=== PATIENT | female | born 1970 | race Caucasian/White ===

== ENCOUNTER 2018-08-25 17:39 | Emergency (ER) | payer OTHER ==
[2018-08-25 18:02] VITALS: TEMP 98.2; BMI 26.2
--- NOTE | 2018-08-25 19:03 | PDOC ---
History of Present Illness - General Chief Complaint: Pain, Acute Stated Complaint: ABD PAIN Time Seen by Provider: 08/25/18 19:02 History Source: Patient Exam Limitations: No Limitations - History of Present Illness Initial Comments: 08/25/18 19:35 48 year old female with PMH chronic constipation, rectal hemorrhoids, right lower lung lobe benign mass, sectionx3 presented to ED for lower abdominal pain since last night, worsening today, associated with constipation, diarrhea, and blood on toilet paper. Pt described pain to be located to the suprapubic area, radiating laterally to her RLQ and LLQ, constant, waxing and waning, aggravated by food, alleviated by lying flat. Pt denied fever, nausea, vomiting, chest pain, shortness of breath. Allergies: NKDA Past History - Past Medical History Allergies/Adverse Reactions: Allergies Allergy/AdvReac Type Severity Reaction Status Date / Time No Known Drug Allergies Allergy Verified 08/25/18 17:55 Home Medications: Ambulatory Orders Diphenhydramine HCl [Benadryl Capsule -] 1 cap PO DAILY 06/18/14 Zolpidem Tartrate [Ambien] 10 mg PO DAILY 06/18/14 Topiramate 25 mg PO DAILY 04/22/15 Cephalexin Monohydrate [Keflex -] 500 mg PO BID #13 capsule 08/25/18 Anemia: No Asthma: No Cancer: No (BENIGN LUNG MASS) Cardiac Disorders: No CVA: No COPD: No CHF: No Dementia: No Diabetes: No GI Disorders: No Disorders: (OVARIAN CYST;LEIOMYOMA OF UTERUS;CYSTIC KIDNEY DISEASE) HTN: No Hypercholesterolemia: No Liver Disease: No Seizures: No Thyroid Disease: No - Surgical History Abdominal Surgery: No Appendectomy: No Cardiac Surgery: No Cholecystectomy: No Lung Surgery: Yes (BENIGN LUNG MASS REMOVED) Neurologic Surgery: No Orthopedic Surgery: Yes (MARQUET PROCEDURE) - Immunization History Immunization Up to Date: Yes - Suicide/Smoking/Psychosocial Hx Smoking Status: Yes Smoking History: Never smoked Have you smoked in the past 12 months: Yes Number of Cigarettes Smoked Daily: 0 If you are a former smoker, when did you quit?: 04/2014 'Breaking Loose' booklet given: 06/09/12 Hx Alcohol Use: No Drug/Substance Use Hx: No Substance Use Type: Marijuana Hx Substance Use Treatment: No Review of Systems - Review of Systems Able to Perform ROS?: Yes Comments:: 08/25/18 19:48 General: admitted to chills. denied fever, generalized weakness. HEENT: denied sore throat, rhinorrhea, ear pain. Heart: denied chest pain, palpitations, syncope, lower extremity swelling, diaphoresis. Respiratory: denied shortness of breath, cough, sputum production, hemoptysis. Abdomen: admitted to abdominal pain, constipation, diarrhea, blood on toilet paper. denied nausea, vomiting. : denied dysuria, increased urinary frequency, hematuria, urinary incontinence , flank pain. Back: denied back pain. Musculoskeletal: denied joint pain, muscle pain, joint swelling. Neurological: denied headache, dizziness, numbness, tingling, weakness. Skin: denied rash, laceration, abrasion. *Physical Exam - Vital Signs Last Vital Signs Temp Pulse Resp BP Pulse Ox 98.2 F 82 16 133/88 98 08/25/18 17:56 08/25/18 17:56 08/25/18 17:56 08/25/18 17:56 08/25/18 17:56 - Physical Exam Comments: 08/25/18 19:49 Constitutional: Well-nourished, Well-developed, appearing stated age. appears in pain. HEENT: head is normocephalic, atraumatic. EOMI. PERRLA. Neck: supple. Full ROM. Heart: regular rhythm. no murmurs, rubs or gallops. Lungs: clear to auscultation bilaterally. no crackles, rhonchi or wheezing. no stridor. Abdomen: soft, flat, tenderness to palpation of suprapubic and LLQ. mcbur[place] point nontender. murphys sign negative. normal bowel sounds. no rebound, guarding, masses. Rectal: external oozing hemorrhoids. pain with digital examination. soft stool in rectal vault. no gross blood on stool sample. Extremities: Peripheral pulses intact. No lower extremity edema. Neurological: CN 2-12 grossly intact. Moves all four extremities. Psych: awake, alert, oriented x3. Follows commands. Answers questions appropriately. Moderate Sedation - Procedure Monitoring Vital Signs: Procedure Monitoring Vital Signs Temperature 98.2 F 08/25/18 17:56 Pulse Rate 82 08/25/18 17:56 Respiratory Rate 16 08/25/18 17:56 Blood Pressure 133/88 08/25/18 17:56 O2 Sat by Pulse Oximetry (%) 98 08/25/18 17:56 ED Treatment Course - LABORATORY CBC & Chemistry Diagram: 08/25/18 19:35 08/25/18 19:35 Medical Decision Making - Medical Decision Making 08/25/18 19:52 48 year old female with above PMH presented to ED for suprapubic pain associated with constipation and episodes of diarrhea, as well as toilet paper on stool. Tenderness to LLQ and suprapubic area. Initial Vital Signs Temp Pulse Resp BP Pulse Ox 98.2 F 82 16 133/88 98 08/25/18 17:56 08/25/18 17:56 08/25/18 17:56 08/25/18 17:56 08/25/18 17:56 Afebrile. No tachycardia. No tachypnea. Mild hypertenion. No hypoxia on room air. Labs ordered: CBC, CMP, lipase, stool guiaic, coags, UA/UC Medications ordered: tylenol, 1000 cc normal saline bolus, mag citrate Imaging ordered: Flat and upright abdomen XR 08/25/18 20:06 Pt reported after rectal examination she had a bowel movement, diarrhea, but no blood in toilet bowel. She reported symptoms have improved. CBC WBC 13.0 K/mm3 (4.0-10.0) H 08/25/18 19:35 RBC 4.42 M/mm3 (3.60-5.2) 08/25/18 19:35 Hgb 14.6 GM/dL (10.7-15.3) 08/25/18 19:35 Hct 42.2 % (32.4-45.2) D 08/25/18 19:35 MCV 95.3 fl (80-96) 08/25/18 19:35 MCH 33.1 pg (25.7-33.7) 08/25/18 19:35 MCHC 34.7 g/dl (32.0-36.0) 08/25/18 19:35 RDW 12.7 % (11.6-15.6) 08/25/18 19:35 Plt Count 314 K/MM3 (134-434) D 08/25/18 19:35 MPV 8.3 fl (7.5-11.1) 08/25/18 19:35 Absolute Neuts (auto) 9.3 K/mm3 (1.5-8.0) H 08/25/18 19:35 Neutrophils % 71.3 % (42.8-82.8) 08/25/18 19:35 Lymphocytes % 19.6 % (8-40) D 08/25/18 19:35 Monocytes % 5.5 % (3.8-10.2) 08/25/18 19:35 Eosinophils % 3.0 % (0-4.5) D 08/25/18 19:35 Basophils % 0.6 % (0-2.0) 08/25/18 19:35 Nucleated RBC % 0 % (0-0) 08/25/18 19:35 Mild leukocytosis with left shift. 08/25/18 20:30 CMP Sodium 137 mmol/L (136-145) 08/25/18 19:35 Potassium 4.4 mmol/L (3.5-5.1) 08/25/18 19:35 Chloride 107 mmol/L (98-107) 08/25/18 19:35 Carbon Dioxide 24 mmol/L (21-32) 08/25/18 19:35 Anion Gap 7 MMOL/L (8-16) L 08/25/18 19:35 BUN 10 mg/dL (7-18) 08/25/18 19:35 Creatinine 0.7 mg/dL (0.55-1.3) 08/25/18 19:35 Creat Clearance w eGFR > 60 (>60) 08/25/18 19:35 Random Glucose 97 mg/dL (74-106) 08/25/18 19:35 Calcium 8.9 mg/dL (8.5-10.1) 08/25/18 19:35 Total Bilirubin 0.3 mg/dL (0.2-1) 08/25/18 19:35 AST 19 U/L (15-37) 08/25/18 19:35 ALT 27 U/L (13-61) 08/25/18 19:35 Alkaline Phosphatase 107 U/L (45-117) 08/25/18 19:35 Total Protein 7.4 g/dl (6.4-8.2) 08/25/18 19:35 Albumin 4.0 g/dl (3.4-5.0) 08/25/18 19:35 Lipase 111 U/L (73-393) 08/25/18 19:35 No electrolyte abnormalities. No HILL. No transaminitis. Normal lipase. Stool negative for blood. Blood on toilet paper likely from hemorrhoids and increased straining secondary to constipation. 08/25/18 20:50 Air fluid levels noted on upright abdominal XR. Sharp costophrenic angles. no free air. no cardiomegaly. no infiltrate. Pt reassessed, reported continued passing of gas. XR concerning for ileus vs SBO. Imaging ordered: CT abdomen/pelvis 08/25/18 20:52 INR, PTT INR 0.93 (0.83-1.09) 08/25/18 19:35 Coags normal. Bleeding likely not from coagulopathy. Urine Test Results Urine Color Yellow 08/25/18 19:35 Urine Appearance Cloudy 08/25/18 19:35 Urine pH 5.0 (5.0-8.0) 08/25/18 19:35 Ur Specific [place] 1.023 (1.010-1.035) 08/25/18 19:35 Urine Protein Negative (NEGATIVE) 08/25/18 19:35 Urine Glucose (UA) Negative (NEGATIVE) 08/25/18 19:35 Urine Ketones Negative (NEGATIVE) 08/25/18 19:35 Urine Blood 3+ (NEGATIVE) H 08/25/18 19:35 Urine Nitrite Negative (NEGATIVE) 08/25/18 19:35 Urine Bilirubin Negative (<2.0 mg/dL) 08/25/18 19:35 Ur Leukocyte Esterase 3+ (NEGATIVE) H 08/25/18 19:35 Ur Epithelial Cells Rare /HPF (FEW) 08/25/18 19:35 Urine Mucus Few 08/25/18 19:35 WBC>5 Pt has UTI. Urine blood positive, likely contaminate from bleeding hemorrhoids. Medications ordered: ceftriaxone, normal saline bolus 1000 cc 08/25/18 22:31 CT abdomen/pelvis report: diffuse mild to moderate fluid-filled distension of the large and small bowel - ?ileus, current/recent diarrheal illness or possible recent cathartic usage. mild to moderate fluid-filled gastric distension. Pt reassessed, still passing gas, reported she is feeling better. Abdominal tenderness improved. Pt to be discharged with Keflex to treat UTI as outpatient. *DC/Admit/Observation/Transfer Diagnosis at time of Disposition: Constipation, Hemorrhoid, Abdominal pain - Discharge Dispostion Disposition: HOME Condition at time of disposition: Stable - Prescriptions Prescriptions: Cephalexin Monohydrate [Keflex -] 500 mg PO BID #13 capsule - Referrals Referrals: Manuelito Abraham MD [Primary Care Provider] - - Patient Instructions Printed Discharge Instructions: DI for Abdominal Pain-Adult, DI for Constipation Additional Instructions: You have constipation and urinary tract infection. Lab work: normal Imaging: CT revealed constipation/diarrhea Medication instructions: 1) Keflex to treat your urinary tract infection. Take as advised on label. 2) Miralax over the counter as needed for constipation. Take as advised on label. Follow up instructions: 1) Follow up with your primary care doctor in 1-2 days. Call their office as soon as possible and make an appointment for the soonest available. Bring the paperwork given to you today to your appointment. Bring the prescription bottles to the appointment with you if you were prescribed medication. Return to the Emergency Department for chest pain, shortness of breath, worsening pain, inability to defecate, blood mixed with stool, fever, vomiting, or any other new, worsening or concerning symptoms. - Post Discharge Activity Forms/Work/School Notes: Back to Work
[2018-08-25] MEDS ORDERED: ACETAMINOPHEN 325 MG TABLET (FP) PO ONE (19:10)
[2018-08-25] MEDS ORDERED: MAGNESIUM CITRATE 300 ML BOTTLE PO ONE (19:28)
[2018-08-25] MEDS ORDERED: MAGNESIUM CITRATE 300 ML BOTTLE ONE (19:45)
[2018-08-25] MEDS ORDERED: ACETAMINOPHEN 325 MG TABLET (FP) ONE (19:45)
[2018-08-25] MEDS ORDERED: SODIUM CHLORIDE 1,000 ML IV STA ×2 (19:48→20:55)
[2018-08-25 19:57] LABS: BASO % 0.6 % (0-2.0); HEMATOCRIT 42.2 % (32.4-45.2); HEMOGLOBIN 14.6 GM/dL (10.7-15.3); LYMPH % 19.6 % (8-40); MCH 33.1 pg (25.7-33.7); MCHC 34.7 g/dl (32.0-36.0); MEAN CELL VOLUME 95.3 fl (80-96); MEAN PLT VOLUME 8.3 fl (7.5-11.1); MONO % 5.5 % (3.8-10.2); NEUT % 71.3 % (42.8-82.8); PLATELET COUNT 314 K/MM3 (134-434); RBC 4.42 M/mm3 (3.60-5.2); RDW 12.7 % (11.6-15.6)
[2018-08-25 20:26] LABS: ALK PHOS 107 U/L (45-117); ANION GAP 7 MMOL/L (8-16); BILIRUBIN,TOTAL 0.3 mg/dL (0.2-1); BLOOD UREA NITROGEN 10 mg/dL (7-18); CALCIUM 8.9 mg/dL (8.5-10.1); CHLORIDE 107 mmol/L (98-107); CO2 24 mmol/L (21-32); CREATININE 0.7 mg/dL (0.55-1.3); GLUCOSE,RANDOM 97 mg/dL (74-106); POTASSIUM 4.4 mmol/L (3.5-5.1); SGOT/AST 19 U/L (15-37); SGPT/ALT 27 U/L (13-61); SODIUM 137 mmol/L (136-145); TOT PROT 7.4 g/dl (6.4-8.2)
--- NOTE | 2018-08-25 20:32 | PDOC ---
Attending Attestation - HPI HPI: 08/25/18 21:08 The patient is a 48 year old female with a significant past medical history of chronic constipation, rectal hemorrhoids, right lower lung lobe benign mass, section x3 who presents to ED for lower abdominal pain since last night with associated with constipation, diarrhea, and bright red blood with wiping. She reports the pain to her suprapubic region radiates to her bilateral lower quadrants, is aggravated by food and alleviated by lying flat. She denies any other complaints. The patient denies chest pain, shortness of breath, headache and dizziness. The patient denies fever, chills, nausea, vomit. The patient denies dysuria, frequency, urgency and hematuria. Allergies: NKDA - Physicial Exam PE: 08/25/18 21:09 Constitutional: Awake, alert, oriented. No acute distress. Head: Normocephalic. Atraumatic Eyes: PERRL. EOMI. Conjunctivae are not pale. ENT: Mucous membranes are moist and intact. Posterior pharynx without exudates or erythema. Uvula midline. Neck: Supple. Full ROM. No lymphadenopathy. Cardiovascular: Regular rate. Regular rhythm. S1, S2 regular. Distal pulses are 2+ and symmetric. Pulmonary/Chest: No evidence of respiratory distress. Clear to auscultation bilaterally No wheezing, rales or rhonchi. Abdominal: (+) suprapubic tenderness. Soft and non-distended. No rebound, guarding or rigidity. No organomegaly. No palpable masses. Good bowel sounds. Back: No CVA tenderness. Musculoskeletal: No edema. No cyanosis. No clubbing. Full range of motion in all extremities. Nocalf tenderness. Radial/pedal pulses are intact and 2+ bilaterally Skin: Skin is warm and dry. No petechiae. No purpura. Neurological: Alert and oriented to person, place, and time. Cranial nerves II -XII are grossly intact. Normal speech. Strength is grossly symmetric. No sensory deficits. Psychiatric: Good eye contact. Normal interaction, affect and behavior. - Medical Decision Making 08/25/18 21:10 Documentation prepared by Clara Ferreira, acting as emergency medical technician for Priscilla Carney DO <Clara Ferreira - Last Filed: 08/25/18 21:08> - Resident Resident Name: Joelle Mercado - ED Attending Attestation I have performed the following: I have examined & evaluated the patient, The case was reviewed & discussed with the resident, I agree w/resident's findings & plan, Exceptions are as noted - Medical Decision Making 08/25/18 20:31 I, Dr. Priscilla Carney, DO, attest that this document has been prepared under my direction and personally reviewed by me in its entirety. I further attest, that it accurately reflects all work, treatment, procedures and medical decision -making performed by me. 08/25/18 20:31 a/p: 48yo female with hx of constipation with abd pain today and constipation and blood on the toilet paper -hemorrhoids on rectal -had rectal exam and then had a BM -feels better, but also suprapubic ttp -concern for UTI and constipation with hemorrhoids -labs, abd xray, ua -will monitor and reassess 08/25/18 20:52 pt with UTI mildly elevated wbc will give iv rocephin in the ED 08/25/18 22:36 poss ileus vs recent illness on ct - no obstruction pt has been passing gas had a bm in the ED feeling better will dc with keflex <Priscilla Carney - Last Filed: 08/25/18 22:37>
[2018-08-25 20:36] LABS: URINE APPEARANCE CLOUDY; URINE BILIRUBIN NEGATIVE (<2.0 mg/dL); URINE COLOR YELLOW; URINE GLUCOSE (UA) NEGATIVE (NEGATIVE); URINE KETONE NEGATIVE (NEGATIVE); URINE LEUK ESTERASE 3+ (NEGATIVE); URINE NITRITE NEGATIVE (NEGATIVE); URINE PROTEIN NEGATIVE (NEGATIVE); URINE UROBILINOGEN NEGATIVE mg/dL (0.2-1.0)
[2018-08-25 20:39] LABS: EPI CELLS RARE /HPF (FEW); URINE MUCUS FEW
[2018-08-25 20:47] LABS: INR 0.93 (0.83-1.09)
[2018-08-25] MEDS ORDERED: CEFTRIAXONE 1 GM in DEXTROSE 5%-WATER - 100 ML IVPB ONE (20:52)
[2018-08-25] MEDS ORDERED: CEFTRIAXONE 1 GM/50 ML BAG ONE (21:11)
[2018-08-25 23:08] VITALS: BP 130/72; PULSE 78
== END 2018-08-25 23:09 | disposition home or self-care (01) ==
LOC: JER 17:39
PROC: 3E0337Z Introduction of Electrolytic and Water Balance Substance into Peripheral Vein, Percutaneous Approach (ICD-10-PCS; principal; 2018-08-25)
PROC: 3E03329 Introduction of Other Anti-infective into Peripheral Vein, Percutaneous Approach (ICD-10-PCS; 2018-08-25)
DX: R10.30 Lower abdominal pain, unspecified (principal); K64.8 Other hemorrhoids; K59.04 Chronic idiopathic constipation; Z87.42 Personal history of other diseases of the female genital tract
CPT/HCPCS: 36415; 74019-TC-FY; 74176-TC; 80053; 81003; 81015; 82272; 83690; 85025; 85610; 85730; 87086; 99282-25; J7030

== ENCOUNTER 2021-07-03 04:17 | Day surgery (SDC) | payer OTHER ==
[2021-06-30 10:13] VITALS: BMI 31.4
[2021-07-03 08:29] VITALS: TEMP 97.5
[2021-07-03 13:10] VITALS: BP 133/76; PULSE 72
== END 2021-07-03 09:20 | disposition home or self-care (01) ==
LOC: JASU-ENDO 04:17
PROVIDERS: ATTEND Internal Medicine Gastroenterology
PROC: 0DJD8ZZ Inspection of Lower Intestinal Tract, Via Natural or Artificial Opening Endoscopic (ICD-10-PCS; principal; 2021-07-03 08:00)
DX: Z12.11 Encounter for screening for malignant neoplasm of colon (principal); Z53.8 Procedure and treatment not carried out for other reasons

== ENCOUNTER 2021-07-22 04:40 | Day surgery (SDC) | payer OTHER ==
[2021-07-16 08:26] VITALS: BMI 31.4
[2021-07-22 11:35] VITALS: TEMP 97.8
[2021-07-22 12:02] VITALS: PULSE 72
[2021-07-22 12:07] VITALS: BP 132/92
== END 2021-07-22 12:29 | disposition home or self-care (01) ==
LOC: JASU-ENDO 04:40
PROVIDERS: ATTEND Internal Medicine Gastroenterology
PROC: 0DB78ZX Excision of Stomach, Pylorus, Via Natural or Artificial Opening Endoscopic, Diagnostic (ICD-10-PCS; 2021-07-22)
PROC: 0DB68ZX Excision of Stomach, Via Natural or Artificial Opening Endoscopic, Diagnostic (ICD-10-PCS; 2021-07-22)
PROC: 0DB98ZX Excision of Duodenum, Via Natural or Artificial Opening Endoscopic, Diagnostic (ICD-10-PCS; principal; 2021-07-22 10:45)
DX: K29.50 Unspecified chronic gastritis without bleeding (principal); K44.9 Diaphragmatic hernia without obstruction or gangrene; B96.81 Helicobacter pylori [H. pylori] as the cause of diseases classified elsewhere; K29.80 Duodenitis without bleeding
CPT/HCPCS: 88305-TC; 88342-TC

== ENCOUNTER 2021-08-05 05:24 | Day surgery (SDC) | payer OTHER ==
[2021-07-25 16:28] VITALS: BMI 31.4
[2021-08-05 11:05] VITALS: TEMP 97.5
[2021-08-05 11:38] VITALS: BP 144/86; PULSE 69
== END 2021-08-05 11:50 | disposition home or self-care (01) ==
LOC: JASU-ENDO 05:24
PROVIDERS: ATTEND Internal Medicine Gastroenterology
PROC: 0DBL8ZX Excision of Transverse Colon, Via Natural or Artificial Opening Endoscopic, Diagnostic (ICD-10-PCS; 2021-08-05)
PROC: 0DBP8ZX Excision of Rectum, Via Natural or Artificial Opening Endoscopic, Diagnostic (ICD-10-PCS; principal; 2021-08-05 09:45)
DX: Z12.11 Encounter for screening for malignant neoplasm of colon (principal); K62.1 Rectal polyp; K64.8 Other hemorrhoids; D12.3 Benign neoplasm of transverse colon
CPT/HCPCS: 88305-TC